=== PATIENT | female | born 1950 | race Caucasian/White ===

== ENCOUNTER 2023-09-22 15:55 | Outpatient (CLI) | payer OTHER ==
[~2023-09-22 15:55] MED LIST: DETROL LA2 MG; DETROL LA2 MG PO; FA-80.8 M1; FA-80.8 M1 PO; INTESTINEX680 MG PO; Mylicon 125MG PO; PREDNISONE2.5 MG; Prednisone PO; SINGULAIR10 MG; SINGULAIR10 MG PO; SYNTHROID200 MCG; Synthroid PO
== END 2023-09-22 16:01 | disposition home or self-care (01) ==
LOC: TOM 15:55
PROVIDERS: ATTEND Orthopaedic Surgery
DX: S42.231A 3-part fracture of surgical neck of right humerus, initial encounter for closed fracture (principal)

== ENCOUNTER 2023-09-27 08:47 | Day surgery (SDC) | payer OTHER ==
[2023-09-24 08:43] LABS: HEMATOCRIT 42.3 % (36.0-45.00); HEMOGLOBIN 14.6 g/dL (12.0-15.00); MEAN CELL VOLUME 104.9 fL (80.00-100.00); MEAN CORPUSCULAR HEMOGLOBIN 36.3 pg (27.00-32.0); MEAN CORPUSCULAR HGB CONC 34.6 g/dl (32.0-36.0); PLATELET COUNT 242 K/uL (150-450); RED BLOOD COUNT 4.03 M/uL (4.00-6.00); RED CELL DISTRIBUTION WIDTH 15.1 % (11.5-14.5)
[2023-09-24 08:56] LABS: COL EPI 69 SECONDS (82-175)
[2023-09-24 08:57] LABS: INR 1.01; PARTIAL THROMBOPLASTIN TIME 25.4 SECONDS (22.0-34.0); PROTHROMBIN TIME 10.6 SECONDS (9.0-11.5)
[2023-09-24 09:05] LABS: URINE APPEARANCE Clear; URINE BILIRRUBIN Negative (NEGATIVE); URINE BLOOD Negative; URINE COLOR Yellow; URINE GLUCOSE Negative (NEGATIVE); URINE LEUKOCYTE Negative; URINE NITRATE Negative; URINE PROTEIN Negative (NEGATIVE); URINE UROBILINOGEN 0.2 E.U./dl
[2023-09-24 09:10] LABS: URINE BACTERIA 147.4 uL (0.0-1933); URINE EPITHELIAL CELLS 3.5 uL (0.0-38.8); URINE RBC 10.3 uL (0.0-20.8); URINE WBC 4.3 uL (0.0-23.2)
[2023-09-24 09:26] LABS: ALBUMIN 3.5 gm/dL (3.4-5.0); BILIRUBIN TOTAL 0.59 mg/dL (0.3-1.2); CALCIUM 9.2 mg/dL (8.5-10.1); CREATININE SERUM 0.56 mg/dL (0.55-1.02); GFR 106.41; GLOBULINA 3.6 G/DL (2.4-3.5); POTASSIUM 4.6 mEq/L (3.5-5.1); TOTAL PROTEIN 7.1 gm/dL (6.4-8.2)
[~2023-09-27] VITALS: Ht 152.4 cm; Wt 78.9 kg
[~2023-09-27 08:47] MED LIST changes: +CIMZIA400 MG/2 M; +CRESTOR10 MG PO; +METHOTREXATE2.5 MG PO; +PROLIA60 MG/1 ML SUBCUTANEO; -SYNTHROID200 MCG; +SYNTHROID200 MCG PO
[2023-09-27] MEDS ORDERED: CEFAZOLIN SODIUM 2,000 MG in 0.9 % SODIUM CHLORIDE 100 ML IV ONE (14:45)
[2023-09-27] MEDS ORDERED: BUPIVACAINE HCL 30 ML VIAL IJ ONE (14:45)
[2023-09-27] MEDS ORDERED: SUGAMMADEX SODIUM 200 MG/2 ML VIAL IV ONE (16:00)
[2023-09-27] MEDS ORDERED: hydrALAZINE HCL 20 MG VIAL IV ONE (16:00)
== END 2023-09-27 19:15 | disposition home or self-care (01) ==
LOC: CIR.AMB 08:47
PROVIDERS: ATTEND Orthopaedic Surgery
DX: S42.231A 3-part fracture of surgical neck of right humerus, initial encounter for closed fracture (principal); Z88.6 Allergy status to analgesic agent; Z91.011 Allergy to milk products; Z91.013 Allergy to seafood; J45.909 Unspecified asthma, uncomplicated; E03.9 Hypothyroidism, unspecified
CPT/HCPCS: 23616; 23120; L8699

== ENCOUNTER 2023-10-27 12:40 | Outpatient (CLI) | payer OTHER | END 2023-10-27 12:44 | disposition home or self-care (01) | LOC: RAD 12:40 | PROVIDERS: ATTEND Orthopaedic Surgery | DX: S42.231D 3-part fracture of surgical neck of right humerus, subsequent encounter for fracture with routine healing (principal) ==

== ENCOUNTER 2024-02-02 08:24 | Outpatient (CLI) | payer OTHER | END 2024-02-02 08:31 | disposition home or self-care (01) | LOC: RAD 08:24 | PROVIDERS: ATTEND Orthopaedic Surgery | DX: M81.0 Age-related osteoporosis without current pathological fracture (principal); S42.231D 3-part fracture of surgical neck of right humerus, subsequent encounter for fracture with routine healing ==

== ENCOUNTER 2024-03-28 09:33 | Outpatient (CLI) | payer OTHER ==
[~2024-03-28] VITALS: Ht 152.4 cm; Wt 78.9 kg
[2024-03-28 10:23] VITALS: BP 136/80
[2024-03-28 11:38] LABS: MEAN CELL VOLUME 102.1 fL (80.00-100.00); MEAN CORPUSCULAR HGB CONC 33.3 g/dl (32.0-36.0); PLATELET COUNT 213 K/uL (150-450); RED BLOOD COUNT 4.11 M/uL (4.00-6.00); RED CELL DISTRIBUTION WIDTH 14.6 % (11.5-14.5)
[2024-03-28 11:59] LABS: INR 1.01; PARTIAL THROMBOPLASTIN TIME 27.5 SECONDS (22.0-34.0)
[2024-03-28 12:00] LABS: COL EPI 85 SECONDS (82-175)
[2024-03-28 12:05] LABS: URINE APPEARANCE Clear; URINE BACTERIA 23.2 uL (0.0-1933); URINE BILIRRUBIN Negative (NEGATIVE); URINE BLOOD NHT; URINE COLOR Yellow; URINE EPITHELIAL CELLS 2.5 uL (0.0-38.8); URINE GLUCOSE Negative (NEGATIVE); URINE KETONE Negative (NEGATIVE); URINE LEUKOCYTE Negative; URINE NITRATE Negative; URINE PROTEIN Negative (NEGATIVE); URINE RBC 12.3 uL (0.0-20.8); URINE UROBILINOGEN 0.2 E.U./dl; URINE WBC 4.5 uL (0.0-23.2)
[2024-03-28 12:44] LABS: ALBUMIN 3.7 gm/dL (3.4-5.0); BILIRUBIN TOTAL 0.58 mg/dL (0.3-1.2); CALCIUM 8.9 mg/dL (8.5-10.1); CREATININE SERUM 0.58 mg/dL (0.55-1.02); GFR 101.9; GLOBULINA 3.5 G/DL (2.4-3.5); POTASSIUM 4.27 mEq/L (3.5-5.1); TOTAL PROTEIN 7.2 gm/dL (6.4-8.2)
== END 2024-03-28 14:09 | disposition home or self-care (01) ==
LOC: RAD 09:33
PROVIDERS: ATTEND Orthopaedic Surgery
DX: I10 Essential (primary) hypertension (principal); Z76.89 Persons encountering health services in other specified circumstances; D64.9 Anemia, unspecified; D68.8 Other specified coagulation defects; N39.0 Urinary tract infection, site not specified; E11.9 Type 2 diabetes mellitus without complications

== ENCOUNTER 2024-04-10 07:20 | Day surgery (SDC) | payer OTHER ==
[2024-04-05 11:37] VITALS: BP 136/80
[~2024-04-10] VITALS: Wt 5.0 kg
[2024-04-10] MEDS ORDERED: CEFAZOLIN SODIUM 1,000 MG VIAL ONE (10:31)
[2024-04-10] MEDS ORDERED: BUPIVACAINE HCL/MPF 0.5% 30ML VIAL ONE (10:33)
[2024-04-10] MEDS ORDERED: METHYLPREDNISOLONE ACETATE 80 MG/ML VIAL ONE (10:40)
[2024-04-10] MEDS ORDERED: EPINEPHRINE HCL/PF 1 MG/ML AMPUL ONE (10:41)
[2024-04-10] MEDS ORDERED: SUGAMMADEX SODIUM 200 MG/2 ML VIAL IV ONE (14:30)
== END 2024-04-10 17:00 | disposition home or self-care (01) ==
LOC: CIR.AMB 07:20 → SURH 07:20 → O/R 07:20 → SURH 10:15 → EDSTATUS 10:15 → CIR.AMB 17:00 → O/R 17:00
PROVIDERS: ATTEND Orthopaedic Surgery
DX: M75.111 Incomplete rotator cuff tear or rupture of right shoulder, not specified as traumatic (principal); T84.84XA Pain due to internal orthopedic prosthetic devices, implants and grafts, initial encounter; Z91.013 Allergy to seafood; Z88.6 Allergy status to analgesic agent

== ENCOUNTER → 2024-08-09 08:50 | Outpatient (CLI) | payer OTHER ==
[2024-08-09 10:20] LABS: ALBUMIN 3.8 gm/dL (3.4-5.0); BILIRUBIN TOTAL 0.49 mg/dL (0.3-1.2); CALCIUM 8.7 mg/dL (8.5-10.1); CREATININE SERUM 0.59 mg/dL (0.55-1.02); GFR 99.91; GLOBULINA 3.4 G/DL (2.4-3.5); MAGNESIUM 2.1 mg/dL (1.8-2.4); POTASSIUM 4.1 mEq/L (3.5-5.1); TOTAL PROTEIN 7.2 gm/dL (6.4-8.2)
== END | disposition home or self-care (01) ==
LOC: LAB 08:50
PROVIDERS: ATTEND Orthopaedic Surgery
DX: E55.9 Vitamin D deficiency, unspecified (principal); M85.9 Disorder of bone density and structure, unspecified; E56.1 Deficiency of vitamin K; E21.3 Hyperparathyroidism, unspecified; E88.89 Other specified metabolic disorders; M81.8 Other osteoporosis without current pathological fracture

== ENCOUNTER 2024-10-20 12:03 | Emergency (ER) | payer OTHER ==
[~2024-10-20] VITALS: Ht 152.4 cm; Wt 78.9 kg
== END 2024-10-20 16:01 | disposition home or self-care (01) ==
LOC: ER 12:03
DX: G51.0 Bell's palsy (principal); Z88.6 Allergy status to analgesic agent; Z91.013 Allergy to seafood; Z91.011 Allergy to milk products

== ENCOUNTER 2024-10-24 09:33 | Outpatient (CLI) | payer OTHER | END 2024-10-24 09:36 | disposition home or self-care (01) | LOC: MRI 09:33 | PROVIDERS: ATTEND Otolaryngology | DX: H91.22 Sudden idiopathic hearing loss, left ear (principal) | CPT/HCPCS: 70553 ==

== ENCOUNTER 2025-02-22 10:33 | Outpatient (CLI) | payer OTHER | END 2025-02-22 10:40 | disposition home or self-care (01) | LOC: RAD 10:33 | PROVIDERS: ATTEND Orthopaedic Surgery | DX: M79.641 Pain in right hand (principal); M79.644 Pain in right finger(s) ==